=== PATIENT | female | born 1995 | race African-American/Black ===

== ENCOUNTER 2019-10-31 08:40 | Emergency (ER) | payer OTHER ==
[~2019-10-31] VITALS: Ht 154.9 cm; Wt 63.1 kg
--- NOTE | 2019-10-31 09:01 | NUR ---
PT BROUGHT BACK FROM TRIAGE FOR ALLERGIC REACTION. OBVIOUS HIVES, SWELLING TO FACE, AIRWAY PATENT, ABLE TO SPEAK FULL SENTANCES. unable to isolate allergy trigger. reports starting last night itching, hives and fb sensation in throat. has not taken any medication.
--- NOTE | 2019-10-31 09:13 | NUR ---
MD [place] AT BEDSIDE FOR EVALUATION
[2019-10-31] MEDS ORDERED: DIPHENHYDRAMINE 50 MG CAPSULE ONE (09:24)
[2019-10-31] MEDS ORDERED: hydrOXyzine 10MG TABLET ONE (09:24)
[2019-10-31] MEDS ORDERED: DEXAMETHASONE 4 MG TABLET ONE (09:24)
[2019-10-31] MEDS ORDERED: EPINEPHRINE 1 MG/ML, 1ML ONE (09:25)
[2019-10-31] MEDS ORDERED: DEXAMETHASONE 4 MG TABLET PO ONE (09:30)
[2019-10-31] MEDS ORDERED: DIPHENHYDRAMINE 25 MG CAPSULE PO ONE (09:30)
[2019-10-31] MEDS ORDERED: EPINEPHRINE 1 MG/ML, 1ML IM ONE (09:30)
[2019-10-31] MEDS ORDERED: hydrOXyzine 10MG TABLET PO ONE (09:30)
--- NOTE | 2019-10-31 10:00 | NUR ---
md catalan at bedside for evaluation
[2019-10-31 10:38] VITALS: BP 98/50
== END 2019-10-31 10:41 | disposition home or self-care (01) ==
LOC: ED 09:17
DX: L50.0 Allergic urticaria (principal)
CPT/HCPCS: 96372; 99284; J0171; Q0163